=== PATIENT | female | born 1985 | race Hispanic/Latino ===

== ENCOUNTER → 2024-01-29 13:13 | Outpatient (REF) | payer BC, SELFPAY | LOC: HWWDC 13:13 | PROVIDERS: ATTENDING PHYSICIAN Nurse Practitioner Adult Health | DX: Z12.31 Encounter for screening mammogram for malignant neoplasm of breast (principal) | CPT/HCPCS: 77063; 77067 ==

== ENCOUNTER → 2025-02-13 13:36 | Outpatient (REF) | payer BC, SELFPAY | LOC: HWWDC 13:36 | PROVIDERS: ATTENDING PHYSICIAN Nurse Practitioner Adult Health | DX: Z12.31 Encounter for screening mammogram for malignant neoplasm of breast (principal) | CPT/HCPCS: 77063; 77067 ==